=== PATIENT | female | born 1950 | race Caucasian/White ===

== ENCOUNTER 2021-05-21 16:14 | Inpatient (IN) | payer MEDICARE, OTHER ==
[~2021-05-21] VITALS: Ht 170.2 cm; Wt 117.9 kg
[2021-05-21] MEDS ORDERED: CEFTRIAXONE 1 GM in SODIUM CHLORIDE 0.9% 50ML 50 ML IV ONE (16:30)
[2021-05-21] MEDS ORDERED: ACETAMINOPHEN 325 MG TAB PO ONE (16:30)
[2021-05-21] MEDS ORDERED: SODIUM CHLORIDE FLUSH 10 ML SYR INJ PRN (16:45)
[2021-05-21] MEDS ORDERED: SODIUM CHLORIDE 0.9% 1000ML 500 ML IV ONE (16:45)
[2021-05-21 17:35] LABS: BASOPHILS % 0.2 % (0.0-1.0); EOSINOPHILS # (AUTO) 0.2 (0.0-0.4); EOSINOPHILS % 1.7 % (0.0-6.0); HEMATOCRIT 30.7 % (34.2-44.1); HEMOGLOBIN 9.3 g/dL (12.0-16.0); LYMPHOCYTES # (AUTO) 0.5 (1.0-3.2); MEAN CORPUSCULAR HEMOGLOBIN 28.4 pg (28-32); MEAN CORPUSCULAR HGB CONC 30.3 g/dL (31-35); MEAN CORPUSCULAR VOLUME 93.6 fL (81-99); MONOCYTES # (AUTO) 0.8 (0.2-0.8); MONOCYTES % 6.2 % (4.4-11.3); NEUTROPHILS # (AUTO) 10.7 (2.1-6.9); NEUTROPHILS % 87.3 % (38.7-80.0); PLATELET COUNT 208 x10e3/uL (140-360); RED BLOOD COUNT 3.28 x10e6/uL (3.6-5.1); RED CELL DISTRIBUTION WIDTH 16.5 % (11.7-14.4)
[2021-05-21] MEDS: ONDANSETRON HCL INJ 2MG/ML 2ML 2 MG/ML VIAL IV PRN (17:45)
[2021-05-21 17:54] LABS: ALBUMIN 2.2 g/dL (3.5-5.0); ALBUMIN/GLOBULIN RATIO 0.4 (0.8-2.0); ANION GAP 21.5 mmol/L (8-16); CREATININE, SERUM 4.47 mg/dL (0.57-1.11); POTASSIUM 3.5 mmol/L (3.5-5.1)
[2021-05-21 18:26] LABS: INR 1.2
[2021-05-21 19:15] LABS: CLARITY,URINE TURBID (CLEAR); COLOR,URINE YELLOW (YELLOW); LEUKOCYTE ESTERASE ,URINE LARGE (NEGATIVE); NITRITE,URINE NEGATIVE (NEGATIVE); PROTEIN,URINE DIPSTICK >=300 (NEGATIVE)
[2021-05-21 19:16] LABS: BACTERIA,URINE FEW /HPF; EPITHELIAL CELLS,URINE RARE /LPF; KETONES,URINE NEGATIVE (NEGATIVE); URINE UROBILINOGEN 0.2 mg/dL (0.2 - 1); WBC,URINE (MAN) >50 /HPF (0-5)
[2021-05-21] MEDS ORDERED: DEXTROSE 50% SYRINGE 50 ML IV PRN (19:30)
[2021-05-21] MEDS: INSULIN REGULAR, HUMAN 100 UNIT/1 ML SQ SCH (22:28)
[2021-05-21 22:50] VITALS: BP 165/89
[2021-05-21 23:10] VITALS: BP 165/89
[2021-05-22] MEDS: HYDROMORPHONE 1MG/1ML INJ IV PRN ×2 (02:55→15:45)
[2021-05-22 03:30] VITALS: BP 126/49
[2021-05-22] MEDS: ACETAMINOPHEN 325 MG TAB PO PRN (03:31)
[2021-05-22 06:12] LABS: BASOPHILS % 0.2 % (0.0-1.0); EOSINOPHILS # (AUTO) 0.1 (0.0-0.4); EOSINOPHILS % 0.6 % (0.0-6.0); HEMATOCRIT 25.7 % (34.2-44.1); LYMPHOCYTES # (AUTO) 0.9 (1.0-3.2); LYMPHOCYTES % 6.3 % (18.0-39.1); MEAN CORPUSCULAR HEMOGLOBIN 28.9 pg (28-32); MEAN CORPUSCULAR HGB CONC 31.1 g/dL (31-35); MEAN CORPUSCULAR VOLUME 92.8 fL (81-99); MONOCYTES # (AUTO) 1.3 (0.2-0.8); MONOCYTES % 9.5 % (4.4-11.3); NEUTROPHILS # (AUTO) 11.5 (2.1-6.9); NEUTROPHILS % 82.8 % (38.7-80.0); PLATELET COUNT 212 x10e3/uL (140-360); RED BLOOD COUNT 2.77 x10e6/uL (3.6-5.1); RED CELL DISTRIBUTION WIDTH 16.3 % (11.7-14.4)
[2021-05-22 06:48] LABS: ANION GAP 20.3 mmol/L (8-16); CALCIUM 8.6 mg/dL (8.4-10.2); CREATININE, SERUM 5.15 mg/dL (0.57-1.11); POTASSIUM 3.3 mmol/L (3.5-5.1)
[2021-05-22] MEDS: INSULIN REGULAR, HUMAN 100 UNIT/1 ML SQ SCH ×4 (07:30→22:39)
[2021-05-22 08:30] VITALS: BP 118/56
[2021-05-22] MEDS ORDERED: RENAGEL800 MG PO (10:32)
[2021-05-22] MEDS ORDERED: BUSPIRONE HCL10 MG PO (10:32)
[2021-05-22] MEDS ORDERED: ZOLPIDEM TARTRAT5 MG PO (10:32)
[2021-05-22] MEDS ORDERED: TORSEMIDE100 MG PO (10:32)
[2021-05-22] MEDS ORDERED: CEFUROXIME250 MG PO (10:32)
[2021-05-22] MEDS ORDERED: PERCOCET 5-3251 EACH PO (10:32)
[2021-05-22] MEDS ORDERED: VENLAFAXINE HCL75 M2 PO (10:32)
[2021-05-22] MEDS ORDERED: LYRICA75 MG PO (10:32)
[2021-05-22] MEDS ORDERED: METOPROLOL TART25 MG PO (10:32)
[2021-05-22] MEDS ORDERED: ISOSORBIDE DINI20 MG PO (10:32)
[2021-05-22] MEDS ORDERED: ZETIA10 MG PO (10:32)
[2021-05-22] MEDS ORDERED: LIPITOR20 MG PO (10:32)
[2021-05-22] MEDS ORDERED: HYDRALAZINE HCL50 MG PO (10:32)
[2021-05-22] MEDS ORDERED: RENA-VITE RX T1 EACH PO (10:32)
[2021-05-22] MEDS ORDERED: METOLAZONE5 MG PO (10:32)
[2021-05-22] MEDS ORDERED: SODIUM CHLORIDE 0.9% 1000ML 2,000 ML IV PRN (11:15)
[2021-05-22 11:53] VITALS: BP 125/56
[2021-05-22] MEDS ORDERED: IOPAMIDOL 370 MG/ML 200 ML INFUS..BTL INJ ONE (12:19)
[2021-05-22] MEDS ORDERED: SODIUM CHLORIDE 0.9% 250ML 250 ML ONE (12:19)
[2021-05-22] MEDS ORDERED: LIDOCAINE HCL 1% LOCAL INJ 20 ML VIAL ONE (12:19)
[2021-05-22] MEDS ORDERED: MIDAZOLAM HCL 2 MG/2 ML VIAL ONE (12:32)
[2021-05-22] MEDS ORDERED: FENTANYL CITRATE/PF 100MCG/2 ML INJ ONE (12:32)
[2021-05-22] MEDS ORDERED: SODIUM CHLORIDE 0.9% 50ML 50 ML ONE (12:34)
[2021-05-22] MEDS ORDERED: CEFTRIAXONE 1 GM VIAL ONE (12:34)
[2021-05-22] MEDS ORDERED: GENTAMICIN 120MG/NS 100ML 100 ML IV ONE ×2 (13:00→20:00)
[2021-05-22] MEDS: ISOSORBIDE DINITRATE 20 MG TAB PO SCH (17:00)
[2021-05-22] MEDS: METOPROLOL TARTRATE 25 MG TAB PO SCH (17:00)
[2021-05-22] MEDS: SEVELAMER CARBONATE 800 MG TAB PO SCH (17:00)
[2021-05-22] MEDS: PREGABALIN 75 MG CAP PO SCH ×2 (17:04→22:37)
[2021-05-22 21:00] VITALS: BP 140/68
[2021-05-22] MEDS ORDERED: HYDRALAZINE HCL 75 MG PO SCH (21:00)
[2021-05-22] MEDS: ATORVASTATIN 40 MG TAB PO SCH (22:37)
[2021-05-22] MEDS: HYDRALAZINE HCL 25 MG TAB PO SCH (22:37)
[2021-05-22] MEDS: BUSPIRONE HCL 10 MG TABLET PO SCH (22:37)
[2021-05-22] MEDS: CEFEPIME 1 GM in SODIUM CHLORIDE 0.9% 50ML 50 ML IV SCH (22:37)
[2021-05-22] MEDS: ZOLPIDEM TARTRATE 10 MG TAB PO SCH (22:37)
[2021-05-22] MEDS: EZETIMIBE 10 MG TAB PO SCH (22:37)
[2021-05-22] MEDS: VENLAFAXINE HCL 75 MG CAPCR PO SCH (22:37)
[2021-05-23] VITALS (7 sets, daily range): BP systolic 102–140; BP diastolic 52–69
[2021-05-23 07:03] LABS: BASOPHILS % 0.2 % (0.0-1.0); EOSINOPHILS # (AUTO) 0.2 (0.0-0.4); HEMATOCRIT 27.3 % (34.2-44.1); HEMOGLOBIN 8.3 g/dL (12.0-16.0); LYMPHOCYTES # (AUTO) 0.9 (1.0-3.2); LYMPHOCYTES % 5.5 % (18.0-39.1); MEAN CORPUSCULAR HEMOGLOBIN 28.9 pg (28-32); MEAN CORPUSCULAR HGB CONC 30.4 g/dL (31-35); MEAN CORPUSCULAR VOLUME 95.1 fL (81-99); MONOCYTES # (AUTO) 1.3 (0.2-0.8); MONOCYTES % 7.7 % (4.4-11.3); NEUTROPHILS # (AUTO) 14.2 (2.1-6.9); NEUTROPHILS % 84.9 % (38.7-80.0); PLATELET COUNT 219 x10e3/uL (140-360); RED BLOOD COUNT 2.87 x10e6/uL (3.6-5.1); RED CELL DISTRIBUTION WIDTH 16.6 % (11.7-14.4)
[2021-05-23 07:25] LABS: ANION GAP 20.1 mmol/L (8-16); CALCIUM 9.1 mg/dL (8.4-10.2); CREATININE, SERUM 4.19 mg/dL (0.57-1.11)
[2021-05-23 07:43] LABS: POTASSIUM 4.1 mmol/L (3.5-5.1)
[2021-05-23] MEDS ORDERED: CEFTRIAXONE 1 GM in SODIUM CHLORIDE 0.9% 50ML 50 ML IV SCH (09:00)
[2021-05-23] MEDS ORDERED: TORSEMIDE 10 MG TAB PO SCH (09:00)
[2021-05-23] MEDS: METOPROLOL TARTRATE 25 MG TAB PO SCH ×2 (09:09→17:58)
[2021-05-23] MEDS: BUSPIRONE HCL 10 MG TABLET PO SCH ×3 (09:10→21:35)
[2021-05-23] MEDS: SEVELAMER CARBONATE 800 MG TAB PO SCH ×3 (09:10→17:58)
[2021-05-23] MEDS: HYDRALAZINE HCL 25 MG TAB PO SCH ×3 (09:10→21:35)
[2021-05-23] MEDS: TORSEMIDE PO SCH (09:11)
[2021-05-23] MEDS: VIT B CMPLX PO SCH (09:11)
[2021-05-23] MEDS: PREGABALIN 75 MG CAP PO SCH ×4 (09:11→21:35)
[2021-05-23] MEDS: METOLAZONE 5 MG TAB PO SCH (09:11)
[2021-05-23] MEDS: [UNRECOGNIZED DRUG - OTHER] PO SCH (09:11)
[2021-05-23] MEDS: ISOSORBIDE DINITRATE 20 MG TAB PO SCH ×2 (09:11→17:58)
[2021-05-23] MEDS: BIOTIN PO SCH (09:11)
[2021-05-23] MEDS: INSULIN REGULAR, HUMAN 100 UNIT/1 ML SQ SCH ×4 (09:34→22:13)
[2021-05-23] MEDS: OXYCODONE/ACETAMINOPHEN 5-325 1 EACH TABLET PO PRN (18:00)
[2021-05-23] MEDS: CEFEPIME 1 GM in SODIUM CHLORIDE 0.9% 50ML 50 ML IV SCH (21:34)
[2021-05-23] MEDS: EZETIMIBE 10 MG TAB PO SCH (21:35)
[2021-05-23] MEDS: VENLAFAXINE HCL 75 MG CAPCR PO SCH (21:35)
[2021-05-23] MEDS: ATORVASTATIN 40 MG TAB PO SCH (21:35)
[2021-05-23] MEDS: ZOLPIDEM TARTRATE 10 MG TAB PO SCH (21:36)
[2021-05-24] VITALS (8 sets, daily range): BP systolic 118–143; BP diastolic 59–77
[2021-05-24] MEDS: ACETAMINOPHEN 325 MG TAB PO PRN (00:36)
[2021-05-24] MEDS: METOPROLOL TARTRATE 25 MG TAB PO SCH ×2 (09:14→17:40)
[2021-05-24] MEDS: BIOTIN PO SCH (09:15)
[2021-05-24] MEDS: SEVELAMER CARBONATE 800 MG TAB PO SCH ×3 (09:15→17:40)
[2021-05-24] MEDS: VIT B CMPLX PO SCH (09:15)
[2021-05-24] MEDS: TORSEMIDE PO SCH (09:15)
[2021-05-24] MEDS: BUSPIRONE HCL 10 MG TABLET PO SCH ×3 (09:15→21:23)
[2021-05-24] MEDS: [UNRECOGNIZED DRUG - OTHER] PO SCH (09:15)
[2021-05-24] MEDS: HYDRALAZINE HCL 25 MG TAB PO SCH ×3 (09:15→21:23)
[2021-05-24] MEDS: METOLAZONE 5 MG TAB PO SCH (09:16)
[2021-05-24] MEDS: PREGABALIN 75 MG CAP PO SCH ×4 (09:16→21:23)
[2021-05-24] MEDS: ISOSORBIDE DINITRATE 20 MG TAB PO SCH ×2 (09:16→17:40)
[2021-05-24] MEDS: OXYCODONE/ACETAMINOPHEN 5-325 1 EACH TABLET PO PRN (09:16)
[2021-05-24] MEDS: INSULIN REGULAR, HUMAN 100 UNIT/1 ML SQ SCH ×4 (10:05→21:00)
[2021-05-24] MEDS: HYDROMORPHONE 1MG/1ML INJ IV PRN ×3 (11:07→23:15)
[2021-05-24] MEDS: POLYETHYLENE GLYCOL 3350 17 GM PACK PO SCH (17:40)
[2021-05-24] MEDS: CEFEPIME 1 GM in SODIUM CHLORIDE 0.9% 50ML 50 ML IV SCH (21:23)
[2021-05-24] MEDS: ATORVASTATIN 40 MG TAB PO SCH (21:23)
[2021-05-24] MEDS: EZETIMIBE 10 MG TAB PO SCH (21:23)
[2021-05-24] MEDS: ZOLPIDEM TARTRATE 10 MG TAB PO SCH (21:23)
[2021-05-24] MEDS: VENLAFAXINE HCL 75 MG CAPCR PO SCH (21:24)
[2021-05-25] VITALS (8 sets, daily range): BP systolic 97–155; BP diastolic 56–84
[2021-05-25 05:59] LABS: BASOPHILS % 0.2 % (0.0-1.0); EOSINOPHILS # (AUTO) 0.3 (0.0-0.4); EOSINOPHILS % 1.8 % (0.0-6.0); HEMATOCRIT 25.3 % (34.2-44.1); HEMOGLOBIN 7.7 g/dL (12.0-16.0); LYMPHOCYTES # (AUTO) 0.9 (1.0-3.2); LYMPHOCYTES % 5.5 % (18.0-39.1); MEAN CORPUSCULAR HEMOGLOBIN 28.6 pg (28-32); MEAN CORPUSCULAR HGB CONC 30.4 g/dL (31-35); MEAN CORPUSCULAR VOLUME 94.1 fL (81-99); MONOCYTES # (AUTO) 1.1 (0.2-0.8); MONOCYTES % 6.3 % (4.4-11.3); NEUTROPHILS # (AUTO) 14.3 (2.1-6.9); NEUTROPHILS % 85.1 % (38.7-80.0); PLATELET COUNT 288 x10e3/uL (140-360); RED BLOOD COUNT 2.69 x10e6/uL (3.6-5.1); RED CELL DISTRIBUTION WIDTH 16.5 % (11.7-14.4)
[2021-05-25] MEDS: INSULIN REGULAR, HUMAN 100 UNIT/1 ML SQ SCH ×4 (07:30→21:47)
[2021-05-25 07:52] LABS: ALBUMIN 1.7 g/dL (3.5-5.0); ALBUMIN/GLOBULIN RATIO 0.3 (0.8-2.0); ANION GAP 21.1 mmol/L (8-16); CALCIUM 8.9 mg/dL (8.4-10.2); CREATININE, SERUM 6.36 mg/dL (0.57-1.11); POTASSIUM 4.1 mmol/L (3.5-5.1)
[2021-05-25] MEDS ORDERED: SODIUM CHLORIDE 0.9% 250ML 500 ML IV PRN (08:45)
[2021-05-25] MEDS ORDERED: ALBUMIN 25% 12.5GM 0.25 GM/ML BTL IV PRN (08:45)
[2021-05-25] MEDS: HYDRALAZINE HCL 25 MG TAB PO SCH ×3 (10:34→21:48)
[2021-05-25] MEDS: BUSPIRONE HCL 10 MG TABLET PO SCH ×3 (10:34→21:48)
[2021-05-25] MEDS: SEVELAMER CARBONATE 800 MG TAB PO SCH ×3 (10:34→16:47)
[2021-05-25] MEDS: TORSEMIDE PO SCH (10:34)
[2021-05-25] MEDS: [UNRECOGNIZED DRUG - OTHER] PO SCH (10:34)
[2021-05-25] MEDS: VIT B CMPLX PO SCH (10:34)
[2021-05-25] MEDS: METOPROLOL TARTRATE 25 MG TAB PO SCH ×2 (10:34→16:47)
[2021-05-25] MEDS: BIOTIN PO SCH (10:34)
[2021-05-25] MEDS: HYDROMORPHONE 1MG/1ML INJ IV PRN (10:35)
[2021-05-25] MEDS: METOLAZONE 5 MG TAB PO SCH (10:35)
[2021-05-25] MEDS: POLYETHYLENE GLYCOL 3350 17 GM PACK PO SCH ×2 (10:35→16:46)
[2021-05-25] MEDS: ISOSORBIDE DINITRATE 20 MG TAB PO SCH ×2 (10:35→16:47)
[2021-05-25] MEDS: PREGABALIN 75 MG CAP PO SCH ×4 (10:35→21:48)
[2021-05-25] MEDS ORDERED: SODIUM CHLORIDE 0.9% 250ML 250 ML IV ONE (12:45)
[2021-05-25] MEDS ORDERED: SODIUM CHLORIDE 0.9% 100 ML ONE (16:21)
[2021-05-25] MEDS: ZOLPIDEM TARTRATE 10 MG TAB PO SCH (21:48)
[2021-05-25] MEDS: ATORVASTATIN 40 MG TAB PO SCH (21:48)
[2021-05-25] MEDS: EZETIMIBE 10 MG TAB PO SCH (21:48)
[2021-05-25] MEDS: VENLAFAXINE HCL 75 MG CAPCR PO SCH (21:48)
[2021-05-25] MEDS: CEFEPIME 1 GM in SODIUM CHLORIDE 0.9% 50ML 50 ML IV SCH (21:48)
[2021-05-26] VITALS (7 sets, daily range): BP systolic 132–160; BP diastolic 60–90
[2021-05-26] MEDS: PREGABALIN 75 MG CAP PO SCH (09:00)
[2021-05-26] MEDS: SEVELAMER CARBONATE 800 MG TAB PO SCH ×3 (09:14→16:43)
[2021-05-26] MEDS: METOPROLOL TARTRATE 25 MG TAB PO SCH ×2 (09:14→16:43)
[2021-05-26] MEDS: ISOSORBIDE DINITRATE 20 MG TAB PO SCH ×2 (09:15→16:43)
[2021-05-26] MEDS: POLYETHYLENE GLYCOL 3350 17 GM PACK PO SCH ×2 (09:15→16:43)
[2021-05-26] MEDS: BUSPIRONE HCL 10 MG TABLET PO SCH (09:15)
[2021-05-26] MEDS: HYDRALAZINE HCL 25 MG TAB PO SCH ×3 (09:15→22:09)
[2021-05-26] MEDS: BALSAM PERU/CASTOR OIL 60 GM OINT...G. TP SCH (09:16)
[2021-05-26] MEDS: INSULIN REGULAR, HUMAN 100 UNIT/1 ML SQ SCH ×4 (09:17→22:13)
[2021-05-26] MEDS ORDERED: MINERAL OIL 132 ML BTL PR ONE (11:00)
[2021-05-26] MEDS: FLUCONAZOLE 200 MG/100 ML 100 ML IV SCH (12:23)
[2021-05-26] MEDS ORDERED: LACTULOSE SYRUP 20 GM/30 ML UDC PO ONE (15:15)
[2021-05-26 16:31] LABS: BASOPHILS # (AUTO) 0.1 (0.0-0.1); BASOPHILS % 0.2 % (0.0-1.0); HEMATOCRIT 35.4 % (34.2-44.1); HEMOGLOBIN 10.8 g/dL (12.0-16.0); LYMPHOCYTES # (AUTO) 0.5 (1.0-3.2); MEAN CORPUSCULAR HEMOGLOBIN 28.7 pg (28-32); MEAN CORPUSCULAR HGB CONC 30.5 g/dL (31-35); MEAN CORPUSCULAR VOLUME 94.1 fL (81-99); MONOCYTES # (AUTO) 1.3 (0.2-0.8); MONOCYTES % 5.1 % (4.4-11.3); NEUTROPHILS # (AUTO) 23.4 (2.1-6.9); NEUTROPHILS % 90.9 % (38.7-80.0); PLATELET COUNT 350 x10e3/uL (140-360); RED BLOOD COUNT 3.76 x10e6/uL (3.6-5.1); RED CELL DISTRIBUTION WIDTH 16.2 % (11.7-14.4)
[2021-05-26] MEDS ORDERED: SODIUM CHLORIDE 0.9% 250ML 250 ML IV ONE (18:45)
[2021-05-26] MEDS: CEFEPIME 1 GM in SODIUM CHLORIDE 0.9% 50ML 50 ML IV SCH (22:08)
[2021-05-26] MEDS: ZOLPIDEM TARTRATE 10 MG TAB PO SCH (22:08)
[2021-05-26] MEDS: ATORVASTATIN 40 MG TAB PO SCH (22:09)
[2021-05-26] MEDS: EZETIMIBE 10 MG TAB PO SCH (22:09)
[2021-05-26] MEDS: VENLAFAXINE HCL 75 MG CAPCR PO SCH (22:09)
[2021-05-26] MEDS: KETOROLAC TROMETHAMINE 30 MG/ML VIAL IV PRN (22:15)
[2021-05-27] VITALS (8 sets, daily range): BP systolic 91–134; BP diastolic 45–75
[2021-05-27 05:34] LABS: ALBUMIN 1.8 g/dL (3.5-5.0); CALCIUM 9.6 mg/dL (8.4-10.2); CREATININE, SERUM 4.23 mg/dL (0.57-1.11)
[2021-05-27 05:35] LABS: ALBUMIN/GLOBULIN RATIO 0.3 (0.8-2.0)
[2021-05-27] MEDS: SEVELAMER CARBONATE 800 MG TAB PO SCH ×3 (08:00→17:00)
[2021-05-27] MEDS: METOPROLOL TARTRATE 25 MG TAB PO SCH ×2 (08:00→17:00)
[2021-05-27] MEDS: INSULIN REGULAR, HUMAN 100 UNIT/1 ML SQ SCH ×4 (08:52→21:00)
[2021-05-27] MEDS: ISOSORBIDE DINITRATE 20 MG TAB PO SCH ×2 (09:00→17:00)
[2021-05-27] MEDS: HYDRALAZINE HCL 25 MG TAB PO SCH ×3 (09:00→21:00)
[2021-05-27] MEDS: POLYETHYLENE GLYCOL 3350 17 GM PACK PO SCH ×2 (09:00→17:00)
[2021-05-27] MEDS: BALSAM PERU/CASTOR OIL 60 GM OINT...G. TP SCH (10:00)
[2021-05-27] MEDS: FLUCONAZOLE 200 MG/100 ML 100 ML IV SCH (11:54)
[2021-05-27] MEDS ORDERED: MANNITOL 25% 12.5GM/50ML 0 ML ONE (12:31)
[2021-05-27] MEDS ORDERED: THROMBIN FOR SOLN 5,000 UNIT VIAL ONE (12:32)
[2021-05-27] MEDS ORDERED: PHENYLEPHRINE HCL 1% 10 MG/ML VIAL ONE (13:07)
[2021-05-27] MEDS ORDERED: SEVOFLURANE INHAL SOLN 250 ML PEN BTL ONE (13:07)
[2021-05-27] MEDS ORDERED: ONDANSETRON HCL INJ 2MG/ML 2ML 2 MG/ML VIAL ONE (13:07)
[2021-05-27] MEDS ORDERED: ROCURONIUM BROMIDE 10 MG/ML 5ML VIAL IV ONE (13:07)
[2021-05-27] MEDS ORDERED: POVIDONE IODINE 0.05% 0.05 % ML PO ONE (13:07)
[2021-05-27] MEDS ORDERED: LIDOCAINE HCL 2% LOCAL INJ 5 ML SDV VIAL INJ ONE (13:07)
[2021-05-27] MEDS ORDERED: PROPOFOL IV EMULSION 10 MG/ML 20 ML VIAL ONE (13:07)
[2021-05-27] MEDS ORDERED: BUPIVACAINE HCL 0.5% INJ 30 ML VIAL INJ ONE (13:39)
[2021-05-27] MEDS ORDERED: BUPIVACAINE LIPOSOME/PF 266 MG/20 ML IJ ONE (13:39)
[2021-05-27] MEDS ORDERED: FENTANYL CITRATE/PF 100MCG/2 ML INJ ONE (13:41)
[2021-05-27] MEDS ORDERED: SODIUM CHLORIDE 0.9% 250ML 250 ML IV ONE (18:15)
[2021-05-27] MEDS: VENLAFAXINE HCL 75 MG CAPCR PO SCH (21:06)
[2021-05-27] MEDS: EZETIMIBE 10 MG TAB PO SCH (21:06)
[2021-05-27] MEDS: ATORVASTATIN 40 MG TAB PO SCH (21:06)
[2021-05-27] MEDS: ZOLPIDEM TARTRATE 10 MG TAB PO SCH (21:06)
[2021-05-27] MEDS: CEFEPIME 1 GM in SODIUM CHLORIDE 0.9% 50ML 50 ML IV SCH (21:06)
[2021-05-27] MEDS: ACETAMINOPHEN 325 MG TAB PO PRN (21:23)
[2021-05-27] MEDS ORDERED: SODIUM CHLORIDE 0.9% 1000ML 1,000 ML IV SCH (21:30)
[2021-05-28] VITALS (8 sets, daily range): BP systolic 93–131; BP diastolic 51–57
[2021-05-28 05:50] LABS: ALBUMIN 1.5 g/dL (3.5-5.0); ALBUMIN/GLOBULIN RATIO 0.3 (0.8-2.0); ANION GAP 18.9 mmol/L (8-16); CALCIUM 9.3 mg/dL (8.4-10.2); CREATININE, SERUM 5.28 mg/dL (0.57-1.11); POTASSIUM 4.9 mmol/L (3.5-5.1)
[2021-05-28] MEDS: KETOROLAC TROMETHAMINE 30 MG/ML VIAL IV PRN ×2 (05:58→21:23)
[2021-05-28] MEDS: ACETAMINOPHEN 325 MG TAB PO PRN ×2 (06:40→20:48)
[2021-05-28] MEDS: ONDANSETRON HCL INJ 2MG/ML 2ML 2 MG/ML VIAL IV PRN (06:40)
[2021-05-28 07:24] LABS: BASOPHILS # (AUTO) 0.1 (0.0-0.1); BASOPHILS % 0.3 % (0.0-1.0); EOSINOPHILS % 0.1 % (0.0-6.0); HEMATOCRIT 29.3 % (34.2-44.1); HEMOGLOBIN 8.5 g/dL (12.0-16.0); LYMPHOCYTES # (AUTO) 0.6 (1.0-3.2); MEAN CORPUSCULAR HEMOGLOBIN 28.5 pg (28-32); MEAN CORPUSCULAR VOLUME 98.3 fL (81-99); MONOCYTES # (AUTO) 0.9 (0.2-0.8); NEUTROPHILS # (AUTO) 19.7 (2.1-6.9); NEUTROPHILS % 91.3 % (38.7-80.0); PLATELET COUNT 333 x10e3/uL (140-360); RED BLOOD COUNT 2.98 x10e6/uL (3.6-5.1); RED CELL DISTRIBUTION WIDTH 16.4 % (11.7-14.4)
[2021-05-28] MEDS: METOPROLOL TARTRATE 25 MG TAB PO SCH ×2 (08:00→16:44)
[2021-05-28] MEDS: HYDROCODONE/APAP 5MG-325MG TAB PO PRN ×2 (08:19→14:20)
[2021-05-28] MEDS: SEVELAMER CARBONATE 800 MG TAB PO SCH ×3 (08:19→16:45)
[2021-05-28] MEDS: INSULIN REGULAR, HUMAN 100 UNIT/1 ML SQ SCH ×4 (08:43→22:08)
[2021-05-28] MEDS: HYDRALAZINE HCL 25 MG TAB PO SCH ×3 (08:45→21:00)
[2021-05-28] MEDS: BALSAM PERU/CASTOR OIL 60 GM OINT...G. TP SCH (08:45)
[2021-05-28] MEDS: ISOSORBIDE DINITRATE 20 MG TAB PO SCH ×2 (08:45→16:44)
[2021-05-28] MEDS: POLYETHYLENE GLYCOL 3350 17 GM PACK PO SCH ×2 (08:45→16:44)
[2021-05-28 10:57] LABS: BAND NEUTROPHILS % (MANUAL) 5 %; LYMPHOCYTES % (MANUAL) 1 % (19-48); MONOCYTES % (MANUAL) 4 % (3.4-9.0); NEUTROPHILS % (MANUAL) 90 % (40-74); PLATELET ESTIMATE ADEQUATE; PLATELET MORPHOLOGY COMMENT NORMAL; RBC MORPHOLOGY COMMENT NORMAL
[2021-05-28] MEDS: FLUCONAZOLE 200 MG/100 ML 100 ML IV SCH (13:00)
[2021-05-28] MEDS ORDERED: GENTAMICIN 120MG/NS 100ML 100 ML IV ONE (14:00)
[2021-05-28 16:41] LABS: BASOPHILS # (AUTO) 0.1 (0.0-0.1); BASOPHILS % 0.5 % (0.0-1.0); EOSINOPHILS % 0.1 % (0.0-6.0); HEMATOCRIT 28.2 % (34.2-44.1); HEMOGLOBIN 8.5 g/dL (12.0-16.0); LYMPHOCYTES # (AUTO) 0.5 (1.0-3.2); LYMPHOCYTES % 2.1 % (18.0-39.1); MEAN CORPUSCULAR HEMOGLOBIN 28.7 pg (28-32); MEAN CORPUSCULAR HGB CONC 30.1 g/dL (31-35); MEAN CORPUSCULAR VOLUME 95.3 fL (81-99); MONOCYTES # (AUTO) 0.7 (0.2-0.8); MONOCYTES % 2.8 % (4.4-11.3); NEUTROPHILS # (AUTO) 23.2 (2.1-6.9); NEUTROPHILS % 92.9 % (38.7-80.0); PLATELET COUNT 315 x10e3/uL (140-360); RED BLOOD COUNT 2.96 x10e6/uL (3.6-5.1); RED CELL DISTRIBUTION WIDTH 16.3 % (11.7-14.4)
[2021-05-28] MEDS: CEFEPIME 1 GM in SODIUM CHLORIDE 0.9% 50ML 50 ML IV SCH (20:38)
[2021-05-28] MEDS: VENLAFAXINE HCL 75 MG CAPCR PO SCH (20:39)
[2021-05-28] MEDS: EZETIMIBE 10 MG TAB PO SCH (20:47)
[2021-05-28] MEDS: ATORVASTATIN 40 MG TAB PO SCH (20:47)
[2021-05-29] VITALS (8 sets, daily range): BP systolic 101–129; BP diastolic 50–67
[2021-05-29] MEDS: KETOROLAC TROMETHAMINE 30 MG/ML VIAL IV PRN ×2 (06:08→16:49)
[2021-05-29] MEDS: ONDANSETRON HCL INJ 2MG/ML 2ML 2 MG/ML VIAL IV PRN (06:42)
[2021-05-29 07:49] LABS: BASOPHILS # (AUTO) 0.1 (0.0-0.1); BASOPHILS % 0.5 % (0.0-1.0); EOSINOPHILS % 0.1 % (0.0-6.0); HEMATOCRIT 30.5 % (34.2-44.1); HEMOGLOBIN 8.6 g/dL (12.0-16.0); LYMPHOCYTES # (AUTO) 0.6 (1.0-3.2); LYMPHOCYTES % 2.2 % (18.0-39.1); MEAN CORPUSCULAR HEMOGLOBIN 28.3 pg (28-32); MEAN CORPUSCULAR HGB CONC 28.2 g/dL (31-35); MEAN CORPUSCULAR VOLUME 100.3 fL (81-99); MONOCYTES # (AUTO) 0.6 (0.2-0.8); MONOCYTES % 2.3 % (4.4-11.3); NEUTROPHILS # (AUTO) 24.6 (2.1-6.9); NEUTROPHILS % 92.7 % (38.7-80.0); PLATELET COUNT 296 x10e3/uL (140-360); RED BLOOD COUNT 3.04 x10e6/uL (3.6-5.1); RED CELL DISTRIBUTION WIDTH 16.2 % (11.7-14.4)
[2021-05-29 08:15] LABS: ALBUMIN 1.7 g/dL (3.5-5.0); ALBUMIN/GLOBULIN RATIO 0.3 (0.8-2.0); ANION GAP 18.5 mmol/L (8-16); CALCIUM 10.1 mg/dL (8.4-10.2); CREATININE, SERUM 3.98 mg/dL (0.57-1.11); POTASSIUM 4.5 mmol/L (3.5-5.1)
[2021-05-29] MEDS ORDERED: FLUCONAZOLE 100 MG TAB PO SCH (09:00)
[2021-05-29] MEDS: SEVELAMER CARBONATE 800 MG TAB PO SCH ×3 (09:11→16:48)
[2021-05-29] MEDS: METOPROLOL TARTRATE 25 MG TAB PO SCH ×2 (09:11→16:48)
[2021-05-29] MEDS: HYDRALAZINE HCL 25 MG TAB PO SCH ×3 (09:11→21:35)
[2021-05-29] MEDS: BALSAM PERU/CASTOR OIL 60 GM OINT...G. TP SCH (09:12)
[2021-05-29] MEDS: POLYETHYLENE GLYCOL 3350 17 GM PACK PO SCH ×2 (09:12→16:48)
[2021-05-29] MEDS: ISOSORBIDE DINITRATE 20 MG TAB PO SCH ×2 (09:12→16:48)
[2021-05-29] MEDS: INSULIN REGULAR, HUMAN 100 UNIT/1 ML SQ SCH ×4 (09:14→21:36)
[2021-05-29 11:45] LABS: BAND NEUTROPHILS % (MANUAL) 1 %; LYMPHOCYTES % (MANUAL) 2 % (19-48); MONOCYTES % (MANUAL) 3 % (3.4-9.0); NEUTROPHILS % (MANUAL) 94 % (40-74); PLATELET ESTIMATE ADEQUATE; PLATELET MORPHOLOGY COMMENT NORMAL; RBC MORPHOLOGY COMMENT NORMAL
[2021-05-29] MEDS: HYDROCODONE/APAP 5MG-325MG TAB PO PRN ×2 (12:15→21:06)
[2021-05-29] MEDS: METRONIDAZOLE 500MG/NS 100ML 100 ML IV SCH ×2 (16:47→22:40)
[2021-05-29] MEDS ORDERED: FLUCONAZOLE 100 MG/NS 50 ML 50 ML IV SCH (20:00)
[2021-05-29] MEDS: VENLAFAXINE HCL 75 MG CAPCR PO SCH (21:05)
[2021-05-29] MEDS: EZETIMIBE 10 MG TAB PO SCH (21:05)
[2021-05-29] MEDS: ATORVASTATIN 40 MG TAB PO SCH (21:05)
[2021-05-29] MEDS: CEFEPIME 1 GM in SODIUM CHLORIDE 0.9% 50ML 50 ML IV SCH (21:21)
[2021-05-29] MEDS ORDERED: LORAZEPAM 0.5 MG TAB PO PRN (23:45)
[2021-05-29] MEDS ORDERED: LACTULOSE SYRUP 20 GM/30 ML UDC PO PRN (23:45)
[2021-05-30] VITALS (14 sets, daily range): BP systolic 63–123; BP diastolic 38–81
[2021-05-30] MEDS: KETOROLAC TROMETHAMINE 30 MG/ML VIAL IV PRN (02:52)
[2021-05-30] MEDS: ONDANSETRON HCL INJ 2MG/ML 2ML 2 MG/ML VIAL IV PRN (02:52)
[2021-05-30] MEDS ORDERED: NOREPINEPHRINE 8 MG/D5W 250 ML 250 ML ONE (05:56)
[2021-05-30] MEDS ORDERED: NOREPINEPHRINE 8 MG/D5W 250 ML 250 ML IV PRN ×2 (06:00→10:00)
[2021-05-30] MEDS ORDERED: VASOPRESSIN 60 UNIT in DEXTROSE 5% 50ML 57 ML IV PRN (06:00)
[2021-05-30] MEDS: METRONIDAZOLE 500MG/NS 100ML 100 ML IV SCH (06:00)
[2021-05-30] MEDS ORDERED: VASOPRESSIN INJ 20 UNIT/ML VIAL ONE (06:08)
[2021-05-30] MEDS ORDERED: DEXTROSE 5% 100ML 100 ML IV ONE (06:09)
[2021-05-30] MEDS ORDERED: AMIODARONE HCL 100 ML IV ONE (06:11)
[2021-05-30] MEDS ORDERED: AMIODARONE 900MG 500 ML IV ONE (06:11)
[2021-05-30] MEDS ORDERED: PHENYLEPHRINE 10MG/ML VIAL 40 MG in DEXTROSE 5% 250ML 246 ML IV PRN ×2 (06:30→09:45)
[2021-05-30] MEDS ORDERED: PHENYLEPHRINE HCL IN 0.9% NACL 250 ML IV ONE (06:41)
[2021-05-30 06:47] LABS: BASOPHILS # (AUTO) 0.1 (0.0-0.1); BASOPHILS % 0.1 % (0.0-1.0); EOSINOPHILS # (AUTO) 0.2 (0.0-0.4); EOSINOPHILS % 0.3 % (0.0-6.0); HEMATOCRIT 37.6 % (34.2-44.1); HEMOGLOBIN 9.6 g/dL (12.0-16.0); LYMPHOCYTES % 11.5 % (18.0-39.1); MEAN CORPUSCULAR HEMOGLOBIN 28.5 pg (28-32); MEAN CORPUSCULAR HGB CONC 25.5 g/dL (31-35); MEAN CORPUSCULAR VOLUME 111.6 fL (81-99); MONOCYTES # (AUTO) 1.7 (0.2-0.8); MONOCYTES % 3.3 % (4.4-11.3); NEUTROPHILS # (AUTO) 39.6 (2.1-6.9); NEUTROPHILS % 75.4 % (38.7-80.0); PLATELET COUNT 524 x10e3/uL (140-360); RED BLOOD COUNT 3.37 x10e6/uL (3.6-5.1); RED CELL DISTRIBUTION WIDTH 16.2 % (11.7-14.4)
[2021-05-30 06:49] LABS: INR 2.73; PROTHROMBIN TIME 30.5 seconds (11.9-14.5)
[2021-05-30 06:50] LABS: PARTIAL THROMBOPLASTIN TIME 50.2 seconds (23.8-35.5)
[2021-05-30 07:00] LABS: ALBUMIN 1.7 g/dL (3.5-5.0); ALBUMIN/GLOBULIN RATIO 0.3 (0.8-2.0); ANION GAP 38.5 mmol/L (8-16); CALCIUM 11.4 mg/dL (8.4-10.2); CREATININE, SERUM 3.62 mg/dL (0.57-1.11)
[2021-05-30 07:05] LABS: CREATINE KINASE MB 0.8 ng/mL (0-5.0)
[2021-05-30] MEDS ORDERED: SODIUM BICARBONATE 8.4% INJ 50 ML SYR IV STA ×4 (07:14→08:25)
[2021-05-30] MEDS ORDERED: SODIUM BICARBONATE 8.4% SYRING 150 ML in DEXTROSE 5% 1,000 ML IV ONE (07:15)
[2021-05-30] MEDS ORDERED: ALBUMIN 25% 25GM 100ML 0.25 GM/ML BTL IV ONE (07:15)
[2021-05-30 07:18] LABS: MAGNESIUM 3.4 MG/DL (1.3-2.1); PHOSPHORUS 10.4 MG/DL (2.3-4.7)
[2021-05-30 07:20] LABS: POTASSIUM 6.5 mmol/L (3.5-5.1)
[2021-05-30] MEDS ORDERED: SODIUM BICARBONATE 8.4% SYRING 100 ML ONE (07:28)
[2021-05-30] MEDS: INSULIN REGULAR, HUMAN 100 UNIT/1 ML SQ SCH (07:30)
[2021-05-30] MEDS ORDERED: DEXTROSE 50% SYRINGE 50 ML IV STA (07:35)
[2021-05-30] MEDS ORDERED: SODIUM BICARBONATE 8.4% SYRING 150 ML in STERILE WATER IV SOLN 1,000 ML IV SCH (07:45)
[2021-05-30] MEDS ORDERED: INSULIN REGULAR, HUMAN 100 UNIT/1 ML SQ ONE (07:45)
[2021-05-30] MEDS ORDERED: CALCIUM GLUCONATE 10% INJ 9.3 MEQ in SODIUM CHLORIDE 0.9% 100 ML 100 ML IV ONE (07:45)
[2021-05-30] MEDS ORDERED: SODIUM CHLORIDE 0.9% 1000ML 1,000 ML IV SCH (07:45)
[2021-05-30] MEDS: METOPROLOL TARTRATE 25 MG TAB PO SCH (08:00)
[2021-05-30] MEDS: SEVELAMER CARBONATE 800 MG TAB PO SCH (08:00)
[2021-05-30] MEDS ORDERED: DEXTROSE 50% SYRINGE 50 ML IV ONE (08:00)
[2021-05-30] MEDS: POLYETHYLENE GLYCOL 3350 17 GM PACK PO SCH (08:13)
[2021-05-30] MEDS: ISOSORBIDE DINITRATE 20 MG TAB PO SCH (08:13)
[2021-05-30] MEDS: HYDRALAZINE HCL 25 MG TAB PO SCH (08:13)
[2021-05-30 08:15] LABS: ABG HCO3 6 mmol/L (22-26); ABG PCO2 30 mmHg (35-45); ABG PH 6.91 (7.35-7.45); ABG PO2 295 mmHg (80-105); ABG TCO2 7
[2021-05-30 08:22] LABS: BAND NEUTROPHILS % (MANUAL) 4 %; LYMPHOCYTES % (MANUAL) 14 % (19-48); METAMYELOCYTES % (MANUAL) 1 % (0-0); MONOCYTES % (MANUAL) 2 % (3.4-9.0); NEUTROPHILS % (MANUAL) 75 % (40-74); NUCLEATED RED BLOOD CELLS 2; PLATELET ESTIMATE SLIGHTLY INCREASED; PLATELET MORPHOLOGY COMMENT FEW GIANT; PROMYELOCYTES % (MANUAL) 4 % (0-0)
[2021-05-30 08:23] LABS: POLYCHROMASIA FEW; RBC MORPHOLOGY COMMENT NORMAL
[2021-05-30] MEDS: BALSAM PERU/CASTOR OIL 60 GM OINT...G. TP SCH (09:00)
[2021-05-30] MEDS ORDERED: ETOMIDATE 2 MG/ML 10 ML INJ IV ONE (12:56)
[2021-05-30] MEDS ORDERED: SUCCINYLCHOLINE CHLORIDE 20 MG/ML 10ML VIAL ONE (12:56)
[2021-05-30] MEDS ORDERED: NALOXONE HCL INJ 0.4 MG/ML AMP ONE (12:56)
[2021-05-30] MEDS ORDERED: VECURONIUM BROMIDE FOR INJ 20 MG VIAL ONE (12:56)
[2021-05-30] MEDS ORDERED: WATER STERILE 10 ML VIAL ONE (12:56)
== END 2021-05-30 16:50 | disposition expired | DRG 853 ==
LOC: ER 16:30 → ERHOLD 16:44 → MED/SURG2 22:45 → IMCU 05-22 20:40 → COVIDICU 05-30 06:56
PROC: 8E0ZXY6 Isolation (ICD-10-PCS; 2021-05-21)
PROC: 0T25X0Z Change Drainage Device in Kidney, External Approach (ICD-10-PCS; principal; 2021-05-22)
PROC: 5A1D70Z Performance of Urinary Filtration, Intermittent, Less than 6 Hours Per Day (ICD-10-PCS; 2021-05-22)
PROC: 0TT14ZZ Resection of Left Kidney, Percutaneous Endoscopic Approach (ICD-10-PCS; 2021-05-27)
PROC: 0TT74ZZ Resection of Left Ureter, Percutaneous Endoscopic Approach (ICD-10-PCS; 2021-05-27)
PROC: 02HV33Z Insertion of Infusion Device into Superior Vena Cava, Percutaneous Approach (ICD-10-PCS; 2021-05-30)
PROC: 3E043XZ Introduction of Vasopressor into Central Vein, Percutaneous Approach (ICD-10-PCS; 2021-05-30)
PROC: 5A1935Z Respiratory Ventilation, Less than 24 Consecutive Hours (ICD-10-PCS; 2021-05-30)
PROC: 0BH18EZ Insertion of Endotracheal Airway into Trachea, Via Natural or Artificial Opening Endoscopic (ICD-10-PCS; 2021-05-30)
DX: A41.89 Other specified sepsis (principal); N18.6 End stage renal disease; R65.21 Severe sepsis with septic shock; J96.01 Acute respiratory failure with hypoxia; U07.1 COVID-19; I12.0 Hypertensive chronic kidney disease with stage 5 chronic kidney disease or end stage renal disease; N25.81 Secondary hyperparathyroidism of renal origin; B37.49 Other urogenital candidiasis; N13.6 Pyonephrosis; E87.2 Acidosis; N17.9 Acute kidney failure, unspecified; D76.3 Other histiocytosis syndromes; A41.52 Sepsis due to Pseudomonas; N99.522 Malfunction of incontinent external stoma of urinary tract; E11.22 Type 2 diabetes mellitus with diabetic chronic kidney disease; Z99.2 Dependence on renal dialysis; E11.65 Type 2 diabetes mellitus with hyperglycemia; E87.6 Hypokalemia; Z86.16 Personal history of COVID-19; K80.20 Calculus of gallbladder without cholecystitis without obstruction; Z88.2 Allergy status to sulfonamides; B96.5 Pseudomonas (aeruginosa) (mallei) (pseudomallei) as the cause of diseases classified elsewhere; Z83.3 Family history of diabetes mellitus; Z82.49 Family history of ischemic heart disease and other diseases of the circulatory system; Z96.652 Presence of left artificial knee joint; Z88.1 Allergy status to other antibiotic agents; N20.0 Calculus of kidney; Z87.442 Personal history of urinary calculi; Z66 Do not resuscitate; E87.5 Hyperkalemia
CPT/HCPCS: 36415; 36600; 50432; 71045; 74018; 74176; 74470; 80048; 80053; 81001; 82150; 82550; 82553; 82565; 82805; 82948; 83605; 83690; 83735; 84100; 84132; 84484; 85025; 85610; 85730; 86705; 86706; 86850; 86900; 86920; 87040; 87070; 87071; 87086; 87186; 87205; 87340; 88304; 88307; 88342; 93005; 94003; 94799; 96360; 96372; 99251; 99284; C1769; J0330; J0610; J0692; J0696; J1170; J1450; J1580; J1817; J1885; J2001; J2150; J2250; J2310; J2370; J2405; J3010; J7030; J7050; J7070; J7799; P9016; P9047; Q9967; U0002